=== PATIENT | female | born 1930 | race Caucasian/White ===

== ENCOUNTER → 2017-05-25 | Outpatient (CLI) | payer OTHER ==
[~2017-05-25] MED LIST: ATOXIMETIN-B1 CAP PO; CIPRO250 MG PO; CIPRO500 MG PO; COMBIVENT1 ARO IH; CRESTOR10 M1 PO; CRESTOR10 MG PO; CRESTOR20 MG PO; CYMBALTA30 MG PO; CYMBALTA60 MG PO; DITROPAN XL5 MG PO; DIURIL PO; FEOSOL300 MG PO; GLUCOPHAGE850 MG PO; GLUCOTROL XL5 MG PO; IRON324 M1 PO; KLOR-CON 88 MEQ PO; LANTUS100 U/ML SC; LEVOXYL0.125 MG PO; LEVOXYL0.15 MG PO; PREDNISONE10 MG PO; PRINIVIL20 MG PO; SLOW K PO; SPIRONOLACTONE/1 TAB PO; ULTRAM50 MG PO; ZEBETA5 MG PO; [UNRECOGNIZED DRUG - OTHER] PO; [UNRECOGNIZED DRUG - OTHER] PO
[2017-05-25 08:04] LABS: BASO # 0.1 10*3/uL (0.0-0.1); BASO % 0.7 % (0.0-1.0); EOS # 0.2 10*3/uL (0.0-0.4); EOS % 2.6 % (1.0-4.0); HEMATOCRIT 41.1 % (37.0-47.0); HEMOGLOBIN 13.8 g/dl (12.0-16.0); LYMPH # 1.5 10*3/uL (1.3-4.4); LYMPH % 18.4 % (27.0-41.0); MEAN CELL VOLUME 95.4 fl (81.0-99.0); MEAN CORPUSCULAR HGB CONC 33.6 g/dl (33.0-37.0); MEAN PLATELET VOLUME 9.1 fl (9.6-12.3); MONO # 0.8 10*3/uL (0.1-1.0); MONO % 9.7 % (3.0-9.0); NEUT # 5.7 10*3/uL (2.3-7.9); NEUT % 67.9 % (47.0-73.0); PLATELET COUNT AUTOMATED 311 10*3/uL (130-400); RED BLOOD COUNT 4.31 10*6/uL (4.10-5.10); WHITE BLOOD COUNT 8.4 10*3/uL (4.8-10.8)
[2017-05-25 08:34] LABS: CHLORIDE 103 mmol/L (98-107); POTASSIUM 4.3 mmol/L (3.5-5.1); SODIUM 138 mmol/L (136-145)
[2017-05-25 08:44] LABS: ALBUMIN 3.7 gm/dl (3.1-4.5); ALKALINE PHOSPHATASE 97 U/L (45-117); BILIRUBIN, DIRECT 0.2 mg/dL (0.0-0.2); BUN 18 mg/dl (7-24); CHOLESTEROL 160 mg/dL (<200); CREATININE 0.86 mg/dL (0.55-1.02); HDL CHOLESTEROL 96 mg/dl (40-60); LDL CHOLESTEROL 43 mg/dL (9-159); SGOT/AST 15 IU/L (3-35); SGPT/ALT 21 U/L (12-78); TOTAL PROTEIN 7.2 gm/dL (6.4-8.2); TRIGLYCERIDES 104 mg/dl (<150); VLDL CHOLESTEROL 21 mg/dL (6-40)
== END | disposition home or self-care (01) ==
LOC: LAB 07:10
PROVIDERS: Internal Medicine
DX: E11.65 Type 2 diabetes mellitus with hyperglycemia (principal); I10 Essential (primary) hypertension

== ENCOUNTER 2018-08-17 08:52 | Inpatient (IN) | payer OTHER ==
[~2018-08-17] VITALS: Ht 165.1 cm; Wt 59.4 kg
--- NOTE | ~2018-08-17 | EKG ---
[place], [place] ELECTROCARDIOGRAM REPORT NAME: AMY HUNG UNIT #: [id number] ROOM: 523 DOCTOR: CULLEN DRAFT REPORT BIRTHDATE: [birth year] [facility] Test Date: 2018-08-17 Test Time: 09:16:46 Pat Name: AMY HUNG Department: Room: 523 Gender: F Accounts Receivable Accountant: : [id number] Requested By: CHARMAINE ROY Order Number: [id number] Reading MD: Rachael Bhatti MD Measurements Intervals [place] Rate: 75 P: 32 AR: 129 QRS: 48 QRSD: 122 T: 19 QT: 379 QTc: 424 Interpretive Statements Sinus rhythm RBBB Atrial premature complexes in couplets Probable left atrial enlargement Right bundle branch block Electronically Signed On 08-18-2018 15:20:54 PST by Rachael Bhatti MD CM:EKGRPT:ELECTROCARDIOGRAM REPORT [id number] CHARMAINE COSTA DRAFT REPORT CHARMAINE ROY DO
[2018-08-17 08:55] VITALS: BP 93/41
[2018-08-17 09:21] LABS: BASO % 0.3 % (0.0-1.0); EOS % 0.2 % (1.0-4.0); HEMATOCRIT 39.2 % (37.0-47.0); HEMOGLOBIN 12.7 g/dl (12.0-16.0); LYMPH # 0.7 10*3/uL (1.3-4.4); LYMPH % 5.8 % (27.0-41.0); MEAN CELL VOLUME 94.9 fl (81.0-99.0); MEAN CORPUSCULAR HGB 30.8 pg (27.0-31.0); MEAN CORPUSCULAR HGB CONC 32.4 g/dl (33.0-37.0); MEAN PLATELET VOLUME 8.5 fl (9.6-12.3); MONO # 0.7 10*3/uL (0.1-1.0); MONO % 6.6 % (3.0-9.0); NEUT # 9.6 10*3/uL (2.3-7.9); NEUT % 85.8 % (47.0-73.0); PLATELET COUNT AUTOMATED 439 10*3/uL (130-400); RED BLOOD COUNT 4.13 10*6/uL (4.10-5.10); RED CELL DISTRI WIDTH 13.4 % (0-14.5); WHITE BLOOD COUNT 11.2 10*3/uL (4.8-10.8)
[2018-08-17 09:43] LABS: BILIRUBIN 1+ (NEGATIVE); BLOOD NEGATIVE (NEGATIVE); CLARITY CLEAR (CLEAR); COLOR YELLOW (YELLOW); GLUCOSE NEGATIVE (NEGATIVE); KETONE 1+ (NEGATIVE); LEUKO ESTERASE NEGATIVE (NEGATIVE); NITRITE NEGATIVE (NEGATIVE); UROBILINOGEN 0.2 E.U./dl (0.2-1.0)
[2018-08-17 10:02] LABS: BACTERIA 1+; EPITHELIAL CELLS 0-2; WBC 0-2 wbc/hpf (0-5)
[2018-08-17 10:08] LABS: ALBUMIN 2.8 gm/dl (3.1-4.5); ALKALINE PHOSPHATASE 121 U/L (45-117); BUN 19 mg/dl (7-24); CHLORIDE 101 mmol/L (98-107); CREATININE 0.84 mg/dL (0.55-1.02); POTASSIUM 4.5 mmol/L (3.5-5.1); SGOT/AST 13 IU/L (3-35); SGPT/ALT 18 U/L (12-78); SODIUM 137 mmol/L (136-145)
[2018-08-17 11:55] VITALS: BP 132/70
--- NOTE | 2018-08-17 11:55 | NUR ---
Time: 115 A 87 year old FEMALE admitted to 5E under services of CIARRA BANKS DO. Pt. arrived via stretcher from ER. Chief complaint: MALNUTRITION, UNABLE TO AMBULATE, FALL. MARY PEREZ
[2018-08-17] MEDS ORDERED: VOLTAREN100 GM T (14:20)
[2018-08-17] MEDS ORDERED: VITAMIN E400 UNI2 PO (14:21)
[2018-08-17] MEDS ORDERED: B-100 COMPLEX100 MG PO (14:22)
[2018-08-17] MEDS ORDERED: DITROPAN XL5 MG PO (14:25)
--- NOTE | 2018-08-17 14:29 | NUR ---
DR ARECHIGA NOTIFIED OF UPDATED MED REC
[2018-08-17 16:00] VITALS: BP 94/46
[2018-08-17] MEDS ORDERED: ATIVAN0.5 MG PO (16:49)
--- NOTE | 2018-08-17 19:29 | NUR ---
PATIENT REQUESTED [facility]CO FOR C/O LEFT SIDE PAIN 11/21. WILL MONITOR
[2018-08-17 20:00] VITALS: BP 105/64
--- NOTE | 2018-08-17 20:29 | NUR ---
NORCO EFFECTIVE FOR LEFT SIDED PAIN
[2018-08-18] VITALS: BP 100/64
--- NOTE | 2018-08-18 00:36 | NUR ---
24 HR chart check completed.
--- NOTE | 2018-08-18 04:24 | NUR ---
AMY HUNG Sarah [id number] Please refer to the physician's history and physical for past medical history, comorbid conditions, and allergies. Diagnosis: MALNUTRITION UNABLE TO AMBULATE FALL Pro Score: 16,AT RISK WOUND DESCRIPTIONS: This nurse went in to evaluate patient's left lower extremity patient stated she has a history of skin cancer and the area to her left lower extremity measuring 2.2cm x 0.8cm x <0.1cm black in color was a site were skin cancer was preivously. No drainage noted at time of assessment. No redness noted around the area. Patient also have several scattered areas noted to her face that she states are cancer as well. Patient has ecchymotic areas noted to BLE's. Surface the patient is resting on: Isoflex SKIN PREVENTION RECOMMENDATION: 1. Pressure redistribution support surface as appropriate 2. Elevate heels 3. Remove boots/TEDS every shift and reapply 4. Head of bed 30 degrees as tolerated 5. Assess nutrition and hydration 6. Manage moisture 7. Avoid the use of containment devices while in bed 8. Use absorptive products on surfaces limit layers of linens on bed 9. Turn and reposition every 1-2 hours in bed and every 1 hour in chair as tolerated 10. Weight shifts every 15 minutes while up in chair 11. Offloading with pillows or device to keep heels elevated off bed 12. Monitor skin at least every shift 13. Inspect under medical devices twice a day WOUND TREATMENT RECOMMENDATIONS: Follow up with dermatology upon discharge.
[2018-08-18 06:20] LABS: BASO % 0.3 % (0.0-1.0); EOS # 0.1 10*3/uL (0.0-0.4); EOS % 0.7 % (1.0-4.0); HEMATOCRIT 38.9 % (37.0-47.0); HEMOGLOBIN 12.4 g/dl (12.0-16.0); LYMPH # 0.9 10*3/uL (1.3-4.4); LYMPH % 7.8 % (27.0-41.0); MEAN CELL VOLUME 94.4 fl (81.0-99.0); MEAN CORPUSCULAR HGB 30.1 pg (27.0-31.0); MEAN CORPUSCULAR HGB CONC 31.9 g/dl (33.0-37.0); MEAN PLATELET VOLUME 8.4 fl (9.6-12.3); MONO % 8.1 % (3.0-9.0); NEUT # 9.8 10*3/uL (2.3-7.9); NEUT % 81.8 % (47.0-73.0); PLATELET COUNT AUTOMATED 419 10*3/uL (130-400); RED BLOOD COUNT 4.12 10*6/uL (4.10-5.10); RED CELL DISTRI WIDTH 13.2 % (0-14.5)
[2018-08-18 06:31] LABS: ACT PARTIAL THROMBO TIME 23.6 SECONDS (20.8-31.5)
[2018-08-18 06:57] LABS: BUN 15 mg/dl (7-24); CHLORIDE 104 mmol/L (98-107); CHOLESTEROL 121 mg/dL (<200); CREATININE 0.68 mg/dL (0.55-1.02); FREE T4 2.56 ng/dl (0.76-1.46); HDL CHOLESTEROL 64 mg/dl (40-60); LDL CHOLESTEROL 45 mg/dL (9-159); PHOSPHOROUS 3.3 mg/dL (2.5-4.9); POTASSIUM 4.3 mmol/L (3.5-5.1); SODIUM 139 mmol/L (136-145); TRIGLYCERIDES 60 mg/dl (<150); VLDL CHOLESTEROL 12 mg/dL (6-40)
[2018-08-18 07:03] LABS: THYROID STIM HORMONE (HS) 0.011 uIU/ml (0.358-4.75)
--- NOTE | 2018-08-18 07:42 | NUR ---
Nursing screen received and Occupational Therapy referral received. Thank you Flores Sheffield OTR/l
[2018-08-18 07:44] LABS: VITAMIN D, 25-HYDROXY 33.4 ng/mL (30-100)
[2018-08-18 08:00] VITALS: BP 104/53
--- NOTE | 2018-08-18 09:12 | NUR ---
NORCO GIVEN FOR C/O LT HIP PAIN. RATES 6/10 ON PAIN SCALE. WILL MONITOR.
--- NOTE | 2018-08-18 09:26 | NUR ---
Patient not available as she is with the nurse. Flores Sheffield OTR/l
--- NOTE | 2018-08-18 09:30 | NUR ---
Principal Android Developer in to talk to patient. Patient states lives at HOME with . There are NO steps in the home. Physician: PALMA Pharmacy: [facility] health services: NONE Patient's level of ADLs: MINIMAL ASSIST Patient has working utilities: YES DME: WALKER Follow-up physician's appointment after d/c: WILL BE MADE BY HOSPITALIST NURSE DIRECTOR ON DISCHARGE Does patient want to access PORTAL?: NO Discharge plan PT STATES SHE LIVES AT HOME WITH HER . TALKED WITH PT [employer] SKILLED PLACEMENT BUT SHE WANTS TO TALK TO HER ABOUT IT. TOLD PT I WOULD CHECK LATER TO SEE IF SHE HAD DECIDED. WILL CONTINUE TO FOLLOW.. AMADA POOL
--- NOTE | 2018-08-18 10:15 | NUR ---
NORCO EFFECTIVE PER PT
--- NOTE | 2018-08-18 11:00 | NUR ---
PHYSICAL THERAPY Patient evaluated on 5, full evaluation to follow. Continue with PT as per plan of care with fall, alarm, MOD (a) X 2, chronic diffuse pain and acute debility precautions. Will require SNF. PAtient is high complexity via chart review, tests and evaluation: [id number]. Thank you for this referral. Keila Ruby,PT
--- NOTE | 2018-08-18 11:10 | NUR ---
Occupational Therapy evaluation completed on 4 with full eval to follow. Precautions include fall risk;bed/chair alarm, IV UE, significant [place], patient is high complexity level 58845 via chart review, testing and evaluation. Recommend OT per POC and SNF to enable return home w/ . Thank you for this referral. Flores Sheffield OTR/L
[2018-08-18 12:00] VITALS: BP 92/60
--- NOTE | 2018-08-18 12:40 | NUR ---
UP TO ROOM TO TALK TO PT AGAIN. IS PRESENT. GAVE OPTIONS OF SKILLED CARES IN AREA THEY CHOSE [facility]. [employer]ATION [employer] INFORMED.
--- NOTE | 2018-08-18 13:39 | NUR ---
patient [facility] to [facility]; [facility] is out of network for Roberra. Explained to patient the only facility in network is [facility] and I know her did not want her referred there. She asked me to wait until later this afternoon and then call her and discuss with him. Will follow
[2018-08-18 16:00] VITALS: BP 110/59
--- NOTE | 2018-08-18 18:54 | NUR ---
NORCO GIVEN FOR C/O GENERALIZED DISCOMFORT. WILL MONITOR.
[2018-08-18 20:00] VITALS: BP 107/45
--- NOTE | 2018-08-18 21:40 | NUR ---
PATIENT MEDICATED WITH NORCO FOR 7/10 LEFT SIDED PAIN. WILL MONITOR
--- NOTE | 2018-08-18 22:40 | NUR ---
NORCO EFFECTIVE FOR LEFT SIDED PAIN.
[2018-08-19] VITALS: BP 119/45
--- NOTE | 2018-08-19 05:10 | NUR ---
24 HR chart check completed.
--- NOTE | 2018-08-19 06:24 | NUR ---
PATIENT MEDICATED WITH NORCO FOR PAIN 5/10 TO LEFT SIDED PAIN. WILL MONITOR
[2018-08-19 07:00] LABS: BASO # 0.1 10*3/uL (0.0-0.1); BASO % 0.5 % (0.0-1.0); EOS # 0.2 10*3/uL (0.0-0.4); EOS % 1.2 % (1.0-4.0); HEMATOCRIT 39.6 % (37.0-47.0); HEMOGLOBIN 12.6 g/dl (12.0-16.0); LYMPH # 1.4 10*3/uL (1.3-4.4); LYMPH % 10.7 % (27.0-41.0); MEAN CELL VOLUME 94.3 fl (81.0-99.0); MEAN CORPUSCULAR HGB CONC 31.8 g/dl (33.0-37.0); MEAN PLATELET VOLUME 8.7 fl (9.6-12.3); MONO % 7.5 % (3.0-9.0); NEUT # 10.2 10*3/uL (2.3-7.9); NEUT % 78.9 % (47.0-73.0); PLATELET COUNT AUTOMATED 463 10*3/uL (130-400); RED CELL DISTRI WIDTH 13.2 % (0-14.5); WHITE BLOOD COUNT 12.9 10*3/uL (4.8-10.8)
[2018-08-19 07:27] LABS: BUN 11 mg/dl (7-24); CHLORIDE 107 mmol/L (98-107); CREATININE 0.62 mg/dL (0.55-1.02); SODIUM 141 mmol/L (136-145)
--- NOTE | 2018-08-19 07:57 | NUR ---
Rajesh, patients is currently at bedside and states he does not want patient to go to [facility]. He would much prefer her to go home with home PT.
[2018-08-19 08:00] VITALS: BP 120/52
--- NOTE | 2018-08-19 08:05 | NUR ---
Notified Elsy, supervisor case loading of husbands request for home PT. She is to follow up at bedside.
--- NOTE | 2018-08-19 09:00 | NUR ---
PHYSICAL THERAPY Patient seen this am 1:1 for therapy visit and was sitting up in bedside chair with her visiting upon therapist arrival. Patient was very pleasant, voicing no c/o's pain, but did report some L shoulder ROM deficits. Patient transfers sit to stand Min/Mod A and needed time to collect herself prior to ambulating 30'x 1, wh walker, Min A and demonstrated very slow, unsteady gait pattern. Patient also had difficulty with 180 degree turns, requiring v/c to improve walker safety / navigation. Patient returned to bedside chair with mild fatigue and following brief rest ambulated additional 20'x 1, completing second gait trial without c/o. Patient remained in bedside chair with call light, tray table, telephone and body alarm. Will continue per POC as tolerated, total treatment time 16 minutes. Tobin Rosen, OPTICAL EFFECTS CAMERA OPERATOR
--- NOTE | 2018-08-19 10:25 | NUR ---
OT NOTE Pt was seen this A.M. 1:1 for 25 minute OT session. Upon arrival pt wa sitting upright in the recliner. Pt identified by name and and had complaints of R knee pain, which she did not rate on 0-10 pain scale. Sit to stand transfer completed from chair level with modA and use of w/w for UE support. Functional mobility completed into the bathroom with CGA and use of w/w. Educated pt on walker safety and navigation throughout for increased I and enhanced safety due to pt picking up all four points, poor safety with tight turns, and correcting her posture. Pt had fair carry over throughout requiring min verbal prompts. There she transferred on to standard commode with [place] due to fear of falling with low surface. Educated pt to reach back with UE and back up till B knees bump the toilet seat. Educated pt on technique of pushing up from commode seat and pt required modA to completed sit to stand from commode surface. Challenged pt's static standing tolerance needed for increased I in self care tasks and functional transfers and pt was able to tolerate aprox 2-3 minutes before requesting to sit due to fatigue. Pt was left sitting upright in recliner with call light in hand, tray table in place, body alarm on for safety, and at bedside. Continue with rec D/C plan to SNF. BENNIE Allen
--- NOTE | 2018-08-19 10:58 | NUR ---
Tramadol given per patient request for chronic pain in her hip. She rates pain 4/10, will monitor.
--- NOTE | 2018-08-19 11:30 | NUR ---
Tramadol effective. Patient has no c/o pain.
--- NOTE | 2018-08-19 11:32 | NUR ---
LOUANN PAINT MIXER MACHINE IN SEE PT AND . TOLD HER HE WANTS PT DISCHARGED TO HOME WITH VISITING NURSES AND PHYSICAL THERAPY ONLY. DOES NOT WANT HER TO GO TO [facility]. WILL CONTINUE TO FOLLOW.
--- NOTE | 2018-08-19 11:40 | NUR ---
Shift chart check completed.
[2018-08-19] MEDS ORDERED: Synthroid,Lev150 MCG PO (13:30)
--- NOTE | 2018-08-19 14:30 | NUR ---
Discharge instructions reviewed with patient/family. Patient receptive and verbalizes understanding. Follow-up care arranged. Written instructions given to patient/family. Patient and spouse were educated on fall precautions and new medication. Patient was wheeled from unit by staff member with all personal belongings accounted for. YANCY BONILLA
--- NOTE | 2018-08-19 15:07 | NUR ---
REFERAL FAXED TO [facility].
--- NOTE | 2018-08-21 10:43 | NUR ---
PHYSICAL THERAPY CO-SIGN I approve of the Phyical Therapy notes written above. ADEEL HERNANDEZ PT
--- NOTE | 2018-08-22 08:01 | NUR ---
OCCUPATIONAL THERAPY CO-SIGN I approve of the Occupational Therapy notes written above. BERTHA MOLINA OTR/[place]
== END 2018-08-19 14:30 | disposition home health service (06) | DRG 552 ==
LOC: ED 08:52 → 5E 11:14 → EDHOLD 11:14 → 5E 11:26
PROVIDERS: Internal Medicine; Student in an Organized Health Care Education/Training Program; ADMIT Internal Medicine
DX: M54.42 Lumbago with sciatica, left side (principal); E44.0 Moderate protein-calorie malnutrition; M54.41 Lumbago with sciatica, right side; R82.71 Bacteriuria; D72.829 Elevated white blood cell count, unspecified; E11.65 Type 2 diabetes mellitus with hyperglycemia; I10 Essential (primary) hypertension; F41.9 Anxiety disorder, unspecified; E78.5 Hyperlipidemia, unspecified; D72.810 Lymphocytopenia; E03.9 Hypothyroidism, unspecified; F17.210 Nicotine dependence, cigarettes, uncomplicated; D47.3 Essential (hemorrhagic) thrombocythemia; J44.9 Chronic obstructive pulmonary disease, unspecified; G89.29 Other chronic pain; Z79.4 Long term (current) use of insulin; Z87.440 Personal history of urinary (tract) infections; Z82.49 Family history of ischemic heart disease and other diseases of the circulatory system; Z82.3 Family history of stroke; Z98.42 Cataract extraction status, left eye; Z98.41 Cataract extraction status, right eye; Z86.718 Personal history of other venous thrombosis and embolism; Z83.3 Family history of diabetes mellitus; Z79.84 Long term (current) use of oral hypoglycemic drugs; Z79.899 Other long term (current) drug therapy; Z91.81 History of falling; Z68.21 Body mass index [BMI] 21.0-21.9, adult